=== PATIENT | male | born 1940 | race Caucasian/White ===

== ENCOUNTER → 2017-01-04 | Outpatient (CLI) | payer OTHER ==
[~2017-01-04] MED LIST: ADULT LOW DOSE81 MG PO; ADVIL PM CAPLE1 EACH PO; ASPIR 8181 MG PO; BENICAR20 MG PO; BENTYL 20 MG TA20 M1 PO; CARDIZEM CD240 MG PO; DILTIAZEM 24HR180 M2 PO; DILTIAZEM 24HR240 MG PO; DIOVAN; FISHOIL PO; KEFLEX500 MG PO; LISINOPRIL10 MG PO; LOVASTAT40 PO; NORCO 5-325 TA1 EACH PO; STOOL SOFTENER100 M1 PO; VITAMIN D400 UNI1 PO; VITCB500GO PO; ZOFRAN ODT4 MG PO
== END ==
LOC: SLEEPLAB 12-21 12:54
DX: G47.33 Obstructive sleep apnea (adult) (pediatric) (principal)

== ENCOUNTER 2017-04-27 15:33 | Observation (INO) | payer OTHER ==
[~2017-04-27] VITALS: Ht 175.3 cm; Wt 84.4 kg
--- NOTE | ~2017-04-27 | EKG ---
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
[2017-04-27 15:34] VITALS: BP 149/86
[2017-04-27] MEDS ORDERED: DILT-XR240 M1 PO (16:10)
[2017-04-27] MEDS ORDERED: LOVASTATIN40 MG PO (16:10)
[2017-04-27] MEDS ORDERED: CIPRO500 MG PO (16:11)
[2017-04-27 16:54] LABS: BE(vivo) -1.1 mmol/L (-2 to +3); HCO3 20.3 mmol/L (22.0-26.0); PCO2 26.2 mmHg (35.0-45.0); PO2 59.2 mmHg (80.0-100.0); pH 7.506 (7.360-7.450); sO2 93.3 % (92.0-98.0)
[2017-04-27 17:15] LABS: HEMATOCRIT 42.8 % (42.0-52.0); HEMOGLOBIN 15.1 gm/dL (14.0-18.0); MCH 32.9 pg (26.0-34.0); MCHC 35.2 g/dL (28.0-37.0); MCV 93.4 fL (80.0-100.0); PLATELET COUNT 144 thou/uL (150-400); RBC 4.59 mil/uL (4.50-6.00); RDW 13.4 % (10.5-14.5); WBC 6.4 thou/uL (4.0-11.0)
[2017-04-27 17:22] LABS: APTT 30.5 Seconds (24.5-32.8); D-DIMER 4.43 ug/mLFEU (0.19-0.50); INR 1.1; PROTIME 11.4 Seconds (9.3-11.4)
[2017-04-27 17:55] LABS: ABSOLUTE NEUTROPHILS 4.4 thou/uL (1.4-8.2); ANISOCYTOSIS 1+; POLYCHROMASIA OCCASIONAL
[2017-04-27 20:00] VITALS: BP 140/75
[2017-04-28 04:00] VITALS: BP 140/77
[2017-04-28 06:10] LABS: HEMATOCRIT 39.8 % (42.0-52.0); HEMOGLOBIN 13.9 gm/dL (14.0-18.0); MCH 32.7 pg (26.0-34.0); MCV 93.5 fL (80.0-100.0); RBC 4.26 mil/uL (4.50-6.00)
[2017-04-28 06:15] LABS: CALCIUM 8.1 mg/dL (8.5-10.1); CREATININE 0.9 mg/dL (0.7-1.3); POTASSIUM 3.3 mmol/L (3.5-5.1)
[2017-04-28 08:00] VITALS: BP 125/77
[2017-04-28] MEDS ORDERED: AZITHROMYCIN 2250 MG PO (11:35)
[2017-04-28 11:54] VITALS: BP 125/77
[2017-04-28 12:35] VITALS: BP 125/77
== END 2017-04-28 12:41 | disposition home or self-care (01) ==
LOC: ER 15:33 → 4S 18:01 → EROBS 18:01 → 4S 19:27
PROVIDERS: Emergency Medicine; Hospitalist
DX: J18.9 Pneumonia, unspecified organism (principal); E78.5 Hyperlipidemia, unspecified; I10 Essential (primary) hypertension; J96.01 Acute respiratory failure with hypoxia; E87.6 Hypokalemia; Z87.891 Personal history of nicotine dependence; E87.3 Alkalosis; I25.10 Atherosclerotic heart disease of native coronary artery without angina pectoris; Z93.3 Colostomy status; Z90.49 Acquired absence of other specified parts of digestive tract; J44.0 Chronic obstructive pulmonary disease with (acute) lower respiratory infection; Z95.828 Presence of other vascular implants and grafts
CPT/HCPCS: 10100

== ENCOUNTER 2017-12-19 20:58 | Emergency (ER) | payer OTHER ==
[~2017-12-19] VITALS: Ht 175.3 cm; Wt 83.9 kg
--- NOTE | ~2017-12-19 | EKG ---
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
[~2017-12-19 20:58] MED LIST changes: +AZITHROMYCIN 2250 MG PO; +CIPRO500 MG PO; +DILT-XR240 M1 PO; +LOVASTATIN40 MG PO
[2017-12-19 21:40] LABS: HEMATOCRIT 47.9 % (42.0-52.0); HEMOGLOBIN 16.5 gm/dL (14.0-18.0); MCHC 34.5 g/dL (28.0-37.0); MCV 95.6 fL (80.0-100.0); PLATELET COUNT 113 thou/uL (150-400); RBC 5.01 mil/uL (4.50-6.00); RDW 13.8 % (10.5-14.5); WBC 12.8 thou/uL (4.0-11.0)
[2017-12-19 21:44] LABS: ANION GAP 8 mmol/L (7-16); BUN 26 mg/dL (7-18); CALCIUM 9.5 mg/dL (8.5-10.1); CHLORIDE 103 mmol/L (98-107); CO2 25 mmol/L (21-32); CREATININE 1.1 mg/dL (0.7-1.3); GLUCOSE 113 mg/dL (74-106); POTASSIUM 4.3 mmol/L (3.5-5.1); SODIUM 136 mmol/L (136-145)
[2017-12-19 21:52] LABS: TROPONIN-I <0.06 ng/mL (<0.06)
[2017-12-19 22:14] LABS: ABSOLUTE NEUTROPHILS 9.1 thou/uL (1.4-8.2)
[2017-12-19 22:15] LABS: LARGE PLATELETS FEW; PLATELET ESTIMATE SLIGHTLY DECREASED
[2017-12-20] MEDS ORDERED: NORCO 5-325 TA1 EACH PO (00:04)
[2017-12-20 00:45] VITALS: BP 165/85
== END 2017-12-20 00:40 | disposition home or self-care (01) ==
LOC: ER 20:58
PROVIDERS: Emergency Medicine
DX: R07.89 Other chest pain (principal); R09.1 Pleurisy; I10 Essential (primary) hypertension; E78.00 Pure hypercholesterolemia, unspecified; E78.5 Hyperlipidemia, unspecified; I25.10 Atherosclerotic heart disease of native coronary artery without angina pectoris; Z90.49 Acquired absence of other specified parts of digestive tract; Z72.0 Tobacco use

== ENCOUNTER → 2018-06-05 | Outpatient (CLI) | payer OTHER ==
[2018-06-05 10:17] LABS: CREATININE 1.1 mg/dL (0.7-1.3)
== END ==
LOC: CAT 09:48
PROVIDERS: Neuromusculoskeletal Medicine & OMM
DX: I25.10 Atherosclerotic heart disease of native coronary artery without angina pectoris (principal); R91.8 Other nonspecific abnormal finding of lung field; J98.4 Other disorders of lung; K44.9 Diaphragmatic hernia without obstruction or gangrene; R59.9 Enlarged lymph nodes, unspecified; I70.0 Atherosclerosis of aorta